=== PATIENT | female | born 1950 | race Caucasian/White ===

== ENCOUNTER → 2024-12-15 09:44 | Outpatient (REF) | payer MEDICARE, SELFPAY | LOC: HWRCS 09:44 | PROVIDERS: ATTENDING PHYSICIAN Internal Medicine Cardiovascular Disease | DX: E11.9 Type 2 diabetes mellitus without complications (principal); R94.31 Abnormal electrocardiogram [ECG] [EKG] | CPT/HCPCS: 93306 ==

== ENCOUNTER → 2025-01-10 07:05 | Outpatient (REF) | payer MEDICARE, OTHER, SELFPAY ==
[2025-01-10] MEDS: LEXISCAN 0.4 MG IV (08:38)
== END ==
LOC: RCS 07:05
PROVIDERS: ATTENDING PHYSICIAN Internal Medicine Cardiovascular Disease; FAMILY PHYSICIAN Internal Medicine
DX: E11.9 Type 2 diabetes mellitus without complications (principal); R94.31 Abnormal electrocardiogram [ECG] [EKG]; R07.89 Other chest pain
CPT/HCPCS: 78452; 93017; A9500; J2785